=== PATIENT | female | born 1975 | race Caucasian/White ===

== ENCOUNTER → 2018-09-25 | Outpatient (CLI) | payer OTHER ==
[~2018-09-25] MED LIST: OMEPRAZOLE40 MG; SEPTRA DS TABLE1 TAB PO; ZANTAC 2525 MG
== END | disposition home or self-care (01) ==
LOC: SONOGRAMA 12:22 → RAD 14:30
DX: N94.89 Other specified conditions associated with female genital organs and menstrual cycle (principal)

== ENCOUNTER 2019-12-05 00:49 | Emergency (ER) | payer OTHER ==
[~2019-12-05] VITALS: Ht 160 cm; Wt 71.7 kg
[2019-12-05] MEDS ORDERED: ZOLOFT100 MG (00:58)
[2019-12-05] MEDS ORDERED: PROTONIX40 MG (00:58)
== END 2019-12-05 01:50 | disposition home or self-care (01) ==
LOC: ER 00:49
DX: L02.03 Carbuncle of face (principal)